=== PATIENT | female | born 1970 | race Hispanic/Latino ===

== ENCOUNTER 2025-01-25 22:16 | Emergency (ER) | payer SELFPAY ==
[~2025-01-25] VITALS: Ht 160 cm; Wt 83.4 kg
[~2025-01-25 22:16] MED LIST: CIPRO500 MG OR; CIPRO500 MG PO; FLAGYL500 MG OR; LORTAB 10 OR; NO HOME MEDS; OMEPRAZOLE40 MG PO; PREVACID15 M1 OR; TORADOL PO; ZOFRAN ODT8 MG OR; [UNRECOGNIZED DRUG - OTHER]; pain med
[2025-01-25 23:40] LABS: URINE BILIRUBIN - DIPSTICK Negative (NEGATIVE); URINE BLOOD DIPSTICK Trace-intact (NEGATIVE); URINE GLUCOSE - DIPSTICK Negative (NEGATIVE); URINE KETONE Negative (NEGATIVE); URINE LEUK ESTERASE Negative (NEGATIVE); URINE NITRITE - DIPSTICK Negative (Negative); URINE PH 5.5 (4.5-8.0); URINE PROTEIN - DIPSTICK Negative (NEG-TRACE); URINE UROBILINOGEN - DIPSTICK 0.2 E.U./dL (0.2)
[2025-01-25 23:41] LABS: URINE COLOR Yellow
[2025-01-26] MEDS ORDERED: BENZONATATE200 MG PO (00:18)
[2025-01-26] MEDS ORDERED: DECADRON4 MG PO (00:18)
[2025-01-26] MEDS ORDERED: BENZONATATE 200 MG/CAP PO ONE (00:20)
[2025-01-26 00:29] VITALS: BP 118/63
== END 2025-01-26 00:30 | disposition home or self-care (01) | DRG 204 ==
LOC: ED 22:16
PROVIDERS: Family Medicine
DX: R05.9 Cough, unspecified (principal); Z86.16 Personal history of COVID-19; Z20.822 Contact with and (suspected) exposure to COVID-19